=== PATIENT | male | born 1980 | race African-American/Black ===

== ENCOUNTER → 2016-12-16 | Day surgery (SDC) ==
[2016-03-08 20:59] VITALS: BMI 19.2
[~2016-12-16] MED LIST: DIPRIVAN 20 ML VIAL IVP ONE; LIDOCAINE 1% 20 ML MDV ID ONE; SUBLIMAZE ONE; VERSED ONE
[2016-12-16 11:50] VITALS: BP 129/78; TEMP 97.4
--- NOTE | 2016-12-17 11:29 | OP ---
INDICATIONS FOR PROCEDURE: Milton is a 36-year-old gentleman with long-standing Crohn's disease. He presents for colonoscopy exam. A little over 6 months ago he stopped his Humira as he was starting to get some tingling in his right foot. He has been treating himself with medical marijuana. He presents now for Crohn's surveillance examination. MEDICATIONS: SEE ANESTHESIA NOTES. PROCEDURE: COLONOSCOPY, BIOPSY. REPORT: The risks, benefits, alternatives and limitations were discussed in detail with the patient. Informed consent was obtained. After adequate sedation was achieved, a digital rectal exam revealed some scarring at the perianal area but no other abnormalities. The colonoscope was introduced into the rectum and advanced under direct visual guidance to the ileocolonic anastamosis. Once again, I encountered an anastomosis that has strictured down. It was only a few millimeters open and there was a second opening about 1 cm away. I could not tell which was actually the true opening and which was a fistula tract. On the true anastomotic opening, I suspected there was a small ulceration in the channel. This was very similar to the appearance he had three years ago on his last colonoscopy. I biopsied this area of inflammation. The blind limb was very short and unremarkable. I then slowly withdrew the scope in a circumferential manner examining the mucosa quite carefully. I looked on the proximal and distal side of folds and flexures as best as possible. He did have some mucusy adherent discharge present on the folds as I advanced the scope and I washed this off and then again as I withdrew , I washed additional off. I noted no abnormalities throughout the entire length of the colon and in the rectum there was some deformity and old scarring but I did not see any active evidence of Crohn's on forward and retroflex view. The withdrawal time was 6 minutes and 32 seconds in this shortened colon. The patient tolerated the procedure well with stable vital signs and pulse oximetry throughout. IMPRESSION: 1. 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 2. MILD INFLAMMATION ON THE COLONIC SIDE OF THE ANASTOMOSIS MANIFESTED BY ONE SMALL ULCERATION. 3. OLD SCARRING IN THE RECTUM BUT NO ACTIVE DISEASE PRESENT. 4. OTHERWISE UNREMARKABLE COLONOSCOPY EXAM. RECOMMENDATIONS: 1. Will await pathology. 2. I will have him follow up in the office with me and will discuss restarting immunosuppressant therapy for treatment since he has done well on it in the past except for questionable right foot numbness. 3. Repeat colonoscopy in three years, sooner if signs or symptoms would indicate otherwise. 4. Will check a B12 level today regarding the numbness he had in his foot. ADDENDUM: I did speak to the patient about possibly Imuran therapy. I spoke to the patient's about starting this. He thinks that he may have been on it years ago but could not afford it. I think it is reasonable to pursue this instead of Humira since he had some numbness and tingling with the Humira. Will go ahead and check B12 as well as B6 and iron profile. If these are unremarkable I will discuss with him at the office setting up the Imuran therapy. CELIA
== END ==
LOC: SURG 07:41
PROVIDERS: ATTEND Internal Medicine Gastroenterology
DX: K50.90 Crohn's disease, unspecified, without complications (principal); K56.69 Other intestinal obstruction; D12.6 Benign neoplasm of colon, unspecified; K63.3 Ulcer of intestine; Z98.0 Intestinal bypass and anastomosis status; R20.2 Paresthesia of skin; T39.4X5A Adverse effect of antirheumatics, not elsewhere classified, initial encounter
CPT/HCPCS: 36415; 82607

== ENCOUNTER 2018-03-09 06:48 | Day surgery (SDC) ==
[2016-03-08 20:59] VITALS: BMI 19.2
[2018-03-09] MEDS ORDERED: LIDOCAINE 1% 20 ML MDV ID STA (07:20)
[2018-03-09] MEDS ORDERED: DIPRIVAN 20 ML VIAL IVP ONE (08:03)
[2018-03-09 16:04] VITALS: BP 128/67; TEMP 98.5
--- NOTE | 2018-03-10 10:10 | OP ---
INDICATIONS FOR PROCEDURE: 38-year-old gentleman with long history of Crohn's presents for surveillance examination. He has been on Imuran now over three months. He tells me he has been asymptomatic. MEDICATIONS: SEE ANESTHESIA NOTES. PROCEDURE: COLONOSCOPY, BIOPSY. REPORT: The risks, benefits, alternatives and limitations were discussed in detail with the patient. Informed consent was obtained. After adequate sedation was achieved, a digital rectal exam revealed good tone, no masses. The colonoscope was introduced into the rectum and advanced under direct visual guidance to the ileocolonic anastomosis. This appeared to be an end to side anastomosis. The anastomatic opening into the ileum was strictured. It was only a few millimeters open and would not allow passage of the scope. About 1 cm away there was another small opening consistent with fistula tract. This was present on colonoscopy examination previously. All of this appeared unchanged. The mucosa in this area appeared relatively unremarkable. I biopsied this anastomotic area multiple times for histologic review. I was able to retroflex the scope in this area as well and I noted no abnormalities in retroflex view. The scope was then withdrawn in a circumferential manner examining the mucosa quite carefully. I looked on the proximal and distal side of folds and flexures as best as possible. The colon was unremarkable. In the rectum there was some old scarring with deformity. There was no evidence of active Crohn's disease on forward or retroflex views. Biopsies were obtained from the rectum for histologic review. The prep was good. The patient tolerated the procedure well with stable vital signs and pulse oximetry throughout. The withdrawal time was 7 minutes, 17 seconds. IMPRESSION: 1. STRICTURED ANASTOMOSIS WITH FISTULA TRACT PRESENT, UNCHANGED FROM PRIOR EXAMINATIONS. 2. OLD SCARRING IN THE RECTUM WITH DEFORMITY BUT NO ACTIVE DISEASE PRESENT. 3. OTHERWISE UNREMARKABLE EXAM. RECOMMENDATIONS: 1. Await pathology results. 2. Continue current therapy. 3. Office visit in approximately four months. 4. Repeat colonoscopy examination again in one year. CELIA
== END 2018-03-09 09:15 | disposition home or self-care (01) ==
LOC: SURG 06:48
PROVIDERS: ATTEND Internal Medicine Gastroenterology
DX: K50.019 Crohn's disease of small intestine with unspecified complications (principal); K63.2 Fistula of intestine